=== PATIENT | male | born 1980 | race Caucasian/White ===

== ENCOUNTER 2019-10-09 00:57 | Emergency (ER) | payer OTHER ==
[~2019-10-09] VITALS: Ht 175.3 cm; Wt 79.4 kg
--- NOTE | 2019-10-09 01:01 | ED.ADGEN ---
Past History Past Medical History: Sinusitis Past Surgical History: Cervical Fusion Past Surgical History Sinus surgery Adult General Chief Complaint Chief Complaint ".. I susana all started yesterday afternoon.. itchy sore throat.. I always have some chronic sinus stuff.. .but since then.. 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 No history of recent travel or specific ill contacts. Is up-to-date with [employer] ons. Normally healthy. Review of Systems Review of Systems Constitutional: History of fever or chills [] Eyes: Denies change in visual acuity, redness, or eye pain [] HENT: History of nasal congestion and sore throat [] Respiratory: History of cough and wheezing Cardiovascular: No additional information not addressed in HPI [] GI: Denies abdominal pain, nausea, vomiting, bloody stools or diarrhea [] : Denies dysuria or hematuria [] Musculoskeletal: Denies back pain or joint pain [] Integument: Denies rash or skin lesions [] Neurologic: Denies headache, focal weakness or sensory changes [] Endocrine: Denies polyuria or polydipsia [] All other systems were reviewed and found to be within normal limits, except as documented in this note. Family History Family History Noncontributory Current Medications Current Medications Current Medications Medications (Trade) Dose Ordered Sig/Alcides Start Time Stop Time Status Last Admin Dose Admin Acetaminophen (Tylenol) 1,000 mg 1X ONCE 10/09/19 01:30 10/09/19 01:31 DC 10/09/19 01:36 1,000 MG Albuterol Sulfate (Ventolin Hfa Inhaler) 2 puff 1X ONCE 10/09/19 02:00 10/09/19 02:01 DC 10/09/19 01:55 2 PUFF Azithromycin (Zithromax) 250 mg STK-MED ONCE 10/09/19 02:46 10/09/19 02:46 DC Ibuprofen (Motrin) 600 mg 1X ONCE 10/09/19 01:30 10/09/19 01:31 DC 10/09/19 01:37 600 MG Prednisone (Prednisone) 50 mg 1X ONCE 10/09/19 02:00 10/09/19 02:01 DC 10/09/19 02:05 50 MG Allergies Allergies Allergies Coded Allergies Type Severity Reaction Last Updated Verified No Known Drug Allergies 10/09/19 No Physical Exam Physical Exam Constitutional: Well developed, well nourished, moderate acute distress, non- toxic appearance. [] HENT: Normocephalic, atraumatic, bilateral external ears normal, oropharynx moist, ejected pharynx, no oral exudates, nose swollen turbinates and clear rhinorrhea] Eyes: PERRLA, EOMI, conjunctiva normal, no discharge. [] Neck: Normal range of motion, no tenderness, supple, no stridor. Old surgery scar Cardiovascular: Tachycardia Heart rate regular rhythm, no murmur [] Lungs & Thorax: Bilateral breath sounds equal apex with scattered wheezes on auscultation [] Abdomen: Bowel sounds normal, soft, no tenderness, no masses, no pulsatile masses. [] Skin: Warm, dry, no erythema, no rash. [] Back: No tenderness, no CVA tenderness. [] Extremities: No tenderness, no cyanosis, no clubbing, ROM intact, no edema. [] Neurologic: Alert and oriented X 3, normal motor function, normal sensory function, no focal deficits noted. [] Psychologic: Affect anxious, judgement normal, mood normal. [] Current Patient Data Vital Signs Vital Signs Date Time Temp Pulse Resp B/P (MAP) Pulse Ox O2 Delivery O2 Flow Rate FiO2 10/09/19 02:55 99.8 106 18 128/78 (95) 98 Room Air Lab Results Laboratory Tests Test 10/09/19 01:18 10/09/19 01:22 Influenza Type A (Rapid) Negative (NEGATIVE) Influenza Type B (Rapid) Negative (NEGATIVE) Group A Streptococcus Rapid Negative (NEGATIVE) Urine Collection Type Unknown Urine Color Yellow Urine Clarity Clear Urine pH 7.0 Urine Specific [place] 1.015 Urine Protein Neg (NEG-TRACE) Urine Glucose (UA) Neg mg/dL (NEG) Urine Ketones (Stick) Neg mg/dL (NEG) Urine Blood Neg (NEG) Urine Nitrite Neg (NEG) Urine Bilirubin Neg (NEG) Urine Urobilinogen Dipstick 0.2 mg/dL (0.2 mg/dL) Urine Leukocyte Esterase Neg (NEG) Urine RBC 0 /HPF (0-2) Urine WBC Rare /HPF (0-4) Urine Squamous Epithelial Cells Occ /LPF Urine Bacteria 0 /HPF (0-FEW) Urine Opiates Screen Neg (NEG) Urine Methadone Screen Neg (NEG) Urine Barbiturates Neg (NEG) Urine Phencyclidine Screen Neg (NEG) Urine Amphetamine/Methamphetamine Neg (NEG) Urine Benzodiazepines Screen Neg (NEG) Urine Cocaine Screen Neg (NEG) Urine Cannabinoids Screen Neg (NEG) Urine Ethyl Alcohol Neg (NEG) EKG EKG [] Radiology/Procedures Radiology/Procedures [][address] [address] IMAGING REPORT Signed PATIENT: BRISA LION ACCOUNT: [id number] : 1980 LOCATION: ER AGE: 39 SEX: M EXAM STATUS: DEP ER ORD. PHYSICIAN: MARY CHAPPELL MD REASON: Congestion, cough, fever PROCEDURE: CHEST PA & LATERAL CHEST PA LATERAL History: Congestion. Cough. Fever. Comparison: None. Findings: No consolidation or pleural effusion. Normal heart size. Postop changes lower cervical spine. Impression: 1. No acute cardiopulmonary process. Electronically signed by: Dean aSnchez DO (10/09/2019 3:29 AM) [facility] DICTATED AND SIGNED BY: DEAN SANCHEZ DO DATE: 10/09/19 0329 CC: MARY CHAPPELL MD; ELA BABB MD ~ Course & Med Decision Making Course & Med Decision Making Pertinent Labs and Imaging studies reviewed. (See chart for details). Take prednisone 50 mg a day for 5 days. Use MDI 2 puffs 4 times a day. Take his Zithromax 250 mg a day. Follow-up primary care. Return if any concerns. Tylenol and ibuprofen for fever. May have Vicoprofen for marked discomfort. [] Final Impression Final Impression 1. Fever[] 2. Sinusitis 3. Pharyngitis 4. Bronchitis Dragon Disclaimer Dragon Disclaimer This electronic medical record was generated, in whole or in part, using a voice recognition dictation system. Dragon Disclaimer This chart was dictated in whole or in part using Voice Recognition software in a busy, high-work load, and often noisy Emergency Department environment. It may contain unintended and wholly unrecognized errors or omissions. MARY CHAPPELL MD Oct 09, 2019 01:00
[2019-10-09] MEDS ORDERED: IBUPROFEN 600 MG TABLET. PO ONE (01:30)
[2019-10-09] MEDS ORDERED: ACETAMINOPHEN 500 MG TABLET PO ONE (01:30)
[2019-10-09 02:00] LABS: BARBITURATES NEG (NEG); BENZODIAZEPINES NEG (NEG); CANNABINOIDS NEG (NEG); COCAINE NEG (NEG); METHADONE NEG (NEG); OPIATES NEG (NEG); PHENCYCLIDINE NEG (NEG)
[2019-10-09] MEDS ORDERED: ALBUTEROL SULFATE 8GM INHALER. INH ONE (02:00)
[2019-10-09] MEDS ORDERED: predniSONE 10 MG TABLET PO ONE (02:00)
[2019-10-09 02:02] LABS: BACTERIA,URINE 0 /HPF (0-FEW); BILIRUBIN,URINE NEG (NEG); CLARITY,URINE CLEAR; COLOR,URINE YELLOW; GLUCOSE,URINE NEG (NEG); NITRITE,URINE NEG (NEG); RBC,URINE 0 /HPF (0-2); SQUAMOUS EPITHELIAL CELL,UR OCC /LPF; UROBILINOGEN,URINE 0.2 mg/dL (0.2 mg/dL); WBC,URINE RARE /HPF (0-4)
[2019-10-09 02:04] LABS: AMPHETAMINE/METHAMPHETAMINE NEG (NEG)
[2019-10-09 02:14] LABS: INFLUENZA A PATIENT NEGATIVE (NEGATIVE); INFLUENZA B PATIENT NEGATIVE (NEGATIVE)
[2019-10-09] MEDS ORDERED: FLUT9.9S NS (02:46)
[2019-10-09] MEDS ORDERED: AZITHROMYCIN 250 MG TABLET. ONE (02:46)
[2019-10-09] MEDS ORDERED: ACET500T68 PO (02:46)
[2019-10-09] MEDS ORDERED: HYDR-1179 PO (02:46)
[2019-10-09] MEDS ORDERED: IBUP400T18 PO (02:46)
[2019-10-09] MEDS ORDERED: SODI104S NS (02:46)
[2019-10-09] MEDS ORDERED: PRED50TA PO (02:46)
[2019-10-09 02:55] VITALS: BP 128/78
[2019-10-09] MEDS ORDERED: AZITHROMYCIN 250 MG TABLET. PO ONE (03:00)
[2019-10-09] MEDS ORDERED: AZIT250T PO (03:04)
--- NOTE | 2019-10-09 03:32 | RAD ---
CHEST PA LATERAL History: Congestion. Cough. Fever. Comparison: None. Findings: No consolidation or pleural effusion. Normal heart size. Postop changes lower cervical spine. Impression: 1. No acute cardiopulmonary process. Electronically signed by: Dean Sanchez DO (10/09/2019 3:29 AM) [id number]
== END 2019-10-09 03:12 | disposition home or self-care (01) ==
LOC: ER 00:57
DX: J32.9 Chronic sinusitis, unspecified (principal); J02.9 Acute pharyngitis, unspecified; J40 Bronchitis, not specified as acute or chronic
CPT/HCPCS: 36415; 71046; 80307; 81001; 87070; 87804; 87880; 94640; 99285; J0456; J7512; J7613; 94664